=== PATIENT | male | born 1960 | race Caucasian/White ===

== ENCOUNTER 2019-07-20 | Emergency (ER) | payer MEDICARE ==
[~2019-07-20] MED LIST: ACCUNE1 IN; ASPIRIN LOW DOS81 M2 PO; BACTROBAN2 % EX; CRESTOR10 MG PO; DEPO-MEDROL80 MG/ML IM; FLEXERIL OR; FLEXERIL5 M1 PO; GENTASOL0.3 % OS; HYZAAR1 TA1 PO; HYZAAR1 TAB OR; LIPITOR10 M1 PO; LISINOPRIL/HYDR1 TA1 PO; MECLIZINE25 MG PO; METFORMIN500 MG PO; NAPROSYN500 MG OR; NAPROSYN500 MG PO; NEXIUM40 M1 OR; OMEPRAZOLE20 M2 PO; PERCOCET 5/325M1 TAB PO; ULTRAM50 M1 OR
[2019-07-20] MEDS ORDERED: BACTRIM DS1 TAB PO (10:44)
== END 2019-07-20 11:15 | disposition home or self-care (01) ==
DX: L03.312 Cellulitis of back [any part except buttock and flank] (principal); E11.9 Type 2 diabetes mellitus without complications; Z79.84 Long term (current) use of oral hypoglycemic drugs

== ENCOUNTER 2022-08-21 11:57 | Inpatient (IN) | payer MEDICARE ==
[~2022-08-21] VITALS: Ht 175.3 cm; Wt 120.8 kg
[2022-08-21] VITALS (67 sets, daily range): BP systolic 79–121; BP diastolic 44–73
[~2022-08-21 11:57] MED LIST changes: +BACTRIM DS1 TAB PO; +BACTRIM1 TAB PO; +FLUCONAZOLE100 MG PO; +GLYBURIDE5 M1 PO; +JARDIANCE25 MG PO
--- NOTE | 2022-08-21 12:09 | NUR ---
PT TO ROOM 11 VIA EMS COMPLAINING OF NAUSEA, VOMITING, AND DIARRHEA SINCE THIS MORNING.
[2022-08-21] MEDS ORDERED: ASPIRIN81 MG PO (12:20)
[2022-08-21] MEDS ORDERED: JANUVIA100 MG PO (12:21)
[2022-08-21 12:55] LABS: ALKALINE PHOSPHATASE 95 u/l (38-126); ANION GAP 14 (6-22 (CALC)); BILIRUBIN, TOTAL 0.3 mg/dL (0.2-1.3); BUN 25 mg/dL (8-23); BUN/CREATININE RATIO 15 (12-20 (CALC)); CARBON DIOXIDE 27 mmol/l (22-30); CHLORIDE 101 mmol/l (95-108); CREATININE 1.7 mg/dL (0.7-1.3); GFR FOR AFR.AMER. 50 ML/MIN (>=60 (CALC)); GFR OTHER RACES 41 ML/MIN (>=60 (CALC)); LIPASE 120 u/l (23-300); POTASSIUM 4.1 mmol/l (3.5-5.1); SGOT/AST 38 u/l (19-48); SODIUM 138 mmol/l (137-146); TOTAL PROTEIN 7.8 g/dL (6.3-8.2)
--- NOTE | 2022-08-21 13:03 | NUR ---
CHECKED ON PT. PT IS SLEEPY AND IS RECIEVING BOLUS IV FLUIDS FOR BP 85/49 PER LALO MARTINEZ APRN. PT USED BEDSIDE COMMODE WITH THE ASSISTANCE OF NURSING STAFF.
[2022-08-21 13:10] LABS: BASO% 0.2 % (0-3); EOS% 1.2 % (0-8); HEMATOCRIT 42.6 % (39.0-50.0); IMMATURE GRANULOCYTES 0.3 % (0.0-5.0); LYMPH% 7.8 % (15-41); MEAN CELL VOLUME 88.9 fL CALC (80.0-100.0); MEAN CORPUSCULAR HGB 29.2 pG CALC (26.0-32.0); MEAN CORPUSCULAR HGB CONC 32.9 g/dL CAL (32.0-36.0); MONO% 6.6 % (2-13); NEUT# 12.12 thou/uL (1.82-7.42); NEUT% 83.9 % (42-76); RED BLOOD COUNT 4.79 mill/uL (4.70-6.10); RED CELL DISTRI WIDTH 13.3 % (11.5-15.5)
[2022-08-21] MEDS ORDERED: VITAMIN B-121000 MC3 PO (13:24)
[2022-08-21] MEDS ORDERED: IBUPROFEN 200200 MG PO (13:26)
[2022-08-21] MEDS ORDERED: MUPIROCIN2 % EX (13:27)
[2022-08-21] MEDS ORDERED: PROAIR HFA IN (13:28)
[2022-08-21] MEDS ORDERED: TRICOR145 MG PO (13:28)
--- NOTE | 2022-08-21 13:36 | NUR ---
ANOTHER BAG OF NORMAL SALINE WAS GIVEN TO PT PER LALO MARTINEZ APRN FOR BP AT 85/46. PT'S BP IS NOW 98/53. BP MONITORING IS CONTINUED.
--- NOTE | 2022-08-21 13:55 | NUR ---
BP AT 97/59. BOLUS INFUSING. FAMILY AT BEDSIDE. PATIENT RESUMED TO [place]PINE POSITION FROM [place]
--- NOTE | 2022-08-21 14:40 | NUR ---
Reassessment of patient completed. No distress noted.
--- NOTE | 2022-08-21 15:30 | NUR ---
Reassessment of patient completed. No distress noted.
--- NOTE | 2022-08-21 16:38 | NUR ---
DISCUSSED PLAN OF CARE AND ADMISSION. PATIENT STATED UNDERSTANDING
[2022-08-21 17:14] LABS: URINE BILIRUBIN - DIPSTICK NEGATIVE (NEGATIVE); URINE BLOOD DIPSTICK NEGATIVE (NEGATIVE); URINE COLOR YELLOW; URINE GLUCOSE - DIPSTICK >=1000 mg/dL (NEGATIVE); URINE KETONE NEGATIVE (NEGATIVE); URINE LEUK ESTERASE NEGATIVE (NEGATIVE); URINE PROTEIN - DIPSTICK NEGATIVE (NEG-TRACE); URINE UROBILINOGEN - DIPSTICK 0.2 E.U./dL (0.2)
[2022-08-21 17:15] LABS: URINE NITRITE - DIPSTICK NEGATIVE (Negative)
--- NOTE | 2022-08-21 17:54 | NUR ---
Patient arrived to unit via stretcher accompanied by sister and staff. Report received from TY Arshad at approximately 1840.
--- NOTE | 2022-08-21 18:04 | NUR ---
REPORT WAS CALLED TO ICU ROOM 4 NURSE SHEREE. PT WAS TRANSPORTED TO ICU ROOM 4 WITH TELEMETRY, 2 LITERS O2 NASAL CANULA. PT IS ALERT AND ORIENTED X3, AMBULATORY WITH SUPERVISION DUE TO HYPOTENSION AND DIZZINESS. NAD AT THIS TIME AND NO CONCERNS WERE MADE AWARE BY NURSE OR PT.
--- NOTE | 2022-08-21 18:41 | NUR ---
Admission assessment completed. Patient lying in bed. Breathing even and unlabored. Patient denies any pain at this time. Patient provided late dinner. Bed in low position. No s/s of distress. Current BP at 92/63. Call light next to R hand.
--- NOTE | 2022-08-21 19:30 | NUR ---
awake. denies distress. car salesperson shows sinus rhythm. #18 lac. ivf began as ordered. po fluids taken well. voids per urinal. fall precautions cont.
--- NOTE | 2022-08-21 21:00 | NUR ---
iv positional. #20 started x1 attempt rac. iv resumed in that site.
[2022-08-22] VITALS (25 sets, daily range): BP systolic 96–124; BP diastolic 46–70
--- NOTE | 2022-08-22 00:10 | NUR ---
lab here. blood drawn.
--- NOTE | 2022-08-22 00:45 | NUR ---
pulse ox has dropped several times to 82% then recovers. is now 77%. pt has VERY apparent sleep apnea. o2 began @ 5 l/m per rt.
--- NOTE | 2022-08-22 04:00 | NUR ---
cardiac telemetry shows sinus tach.
[2022-08-22 05:31] LABS: HEMATOCRIT 43.9 % (39.0-50.0); MEAN CELL VOLUME 91.1 fL CALC (80.0-100.0); MEAN CORPUSCULAR HGB CONC 31.9 g/dL CAL (32.0-36.0); RED BLOOD COUNT 4.82 mill/uL (4.70-6.10); RED CELL DISTRI WIDTH 13.6 % (11.5-15.5)
[2022-08-22 06:09] LABS: ANION GAP 3 (6-22 (CALC)); BUN 23 mg/dL (8-23); BUN/CREATININE RATIO 17 (12-20 (CALC)); CALCULATED LDLCHOLESTEROL 75 mg/dL (62-129 (CALC)); CARBON DIOXIDE 25 mmol/l (22-30); CHLORIDE 107 mmol/l (95-108); CHOLESTEROL HDL RATIO 5.5 (<4.4 (CALC)); CREATININE 1.4 mg/dL (0.7-1.3); GFR FOR AFR.AMER. > 60 ML/MIN (>=60 (CALC)); GFR OTHER RACES 51 ML/MIN (>=60 (CALC)); HDL CHOLESTEROL 31 mg/dL (39.0-59.0); POTASSIUM 4.4 mmol/l (3.5-5.1); SODIUM 131 mmol/l (137-146); TOTAL CHOLESTEROL 173 mg/dl (0-199); TOTAL TRIGLYCERIDES 335 mg/dl (0-149); VLDL CHOLESTROL 67 mg/dl (4-45 (CALC))
--- NOTE | 2022-08-22 09:37 | NUR ---
Patient sitting up on the side of the bed eating breakfast. Assessment completed. Patient denies any pain at this time. Breathing even and unlabored. No s/s of distress. Bed in low position. Call light next to L leg. Will continue to monitor.
--- NOTE | 2022-08-22 10:33 | NUR ---
Patient appears to be resting with eyes closed. Sister at bedside. No s/s of distress. Call light next to R hand. Bed in low position. Will continue to monitor.
--- NOTE | 2022-08-22 12:00 | NUR ---
Patient sitting up in bed eating lunch. Patient denies any pain at this time. No s/s of distress. Bed in low position. Breathing even and unlabored. Will continue to monitor.
--- NOTE | 2022-08-22 14:00 | NUR ---
Patient appears to be resting with eyes closed. No s/s of distress. Bed in low position. Call light next to R hand.
--- NOTE | 2022-08-22 16:00 | NUR ---
Patient sitting up in bed wathcing tv. Patient denies any pain at this time. No s/s of distress. Patient denies any concerns. Bed in low position. Call light next to R hand. Will continue to monitor.
--- NOTE | 2022-08-22 18:17 | NUR ---
Patient lying in bed. Patient denies any pain at this time. Breathing even and unlabored. No s/s of distress. Bed in low position. Call light next to R hand.
--- NOTE | 2022-08-22 19:37 | NUR ---
HELPED PT TAKE A BEDSIDE BATH AND CHANGED GOWN AND LINEN. PT BACK IN BED AT THIS TIME. NO C/O OF DIZZINESS, SOB OR PAIN DURING BATHING. VSS. NAD. PT STAYED ON 4L NC DURING BATH.
--- NOTE | 2022-08-22 22:00 | NUR ---
PT WATCHING TV RESTING IN BED. URINAL EMPTIED AND RECORDED. VSS. NAD.
[2022-08-23] VITALS (27 sets, daily range): BP systolic 95–132; BP diastolic 43–73
--- NOTE | 2022-08-23 | NUR ---
PT SLEEPING AND SHOWING SIGNS OF OBSTRUCTED SLEEP APNEA WITH O2 MONITOR SHOWING HIS OXYGEN LEVEL BETWEEN 78%-82% FOR LONGER THAN 30 SECONDS WHILE BREATHING/SNORING. TALKED TO PATIENT ABOUT NEEDING A CPAP AT NIGHT AND SEEING HIS DR ABOUT THIS BUT PT HAS A HARD TIME COMPREHENDING. VSS BACK STABLE AND PT NAD.
--- NOTE | 2022-08-23 03:00 | NUR ---
CALLED RT AND ME AND RT PULLED PT UP TO HEAD OF THE BED AND READJUSTED HIM. PT NAD VSS.
[2022-08-23 05:28] LABS: BASO% 0.2 % (0-3); EOS% 3.5 % (0-8); HEMATOCRIT 42.5 % (39.0-50.0); HEMOGLOBIN 13.4 g/dl (14.0-18.0); IMMATURE GRANULOCYTES 0.5 % (0.0-5.0); LYMPH% 22.9 % (15-41); MEAN CELL VOLUME 91.4 fL CALC (80.0-100.0); MEAN CORPUSCULAR HGB 28.8 pG CALC (26.0-32.0); MEAN CORPUSCULAR HGB CONC 31.5 g/dL CAL (32.0-36.0); MONO% 7.1 % (2-13); NEUT# 4.2 thou/uL (1.82-7.42); NEUT% 65.8 % (42-76); RED BLOOD COUNT 4.65 mill/uL (4.70-6.10); RED CELL DISTRI WIDTH 13.6 % (11.5-15.5)
[2022-08-23 05:52] LABS: ALBUMIN 3.6 g/dL (3.2-5.0); ALKALINE PHOSPHATASE 74 u/l (38-126); BUN 18 mg/dL (8-23); BUN/CREATININE RATIO 14 (12-20 (CALC)); CARBON DIOXIDE 25 mmol/l (22-30); CHLORIDE 107 mmol/l (95-108); CREATININE 1.3 mg/dL (0.7-1.3); GFR FOR AFR.AMER. > 60 ML/MIN (>=60 (CALC)); GFR OTHER RACES 56 ML/MIN (>=60 (CALC)); POTASSIUM 4.1 mmol/l (3.5-5.1); SGOT/AST 30 u/l (19-48); TOTAL PROTEIN 6.7 g/dL (6.3-8.2)
[2022-08-23 06:04] LABS: ANION GAP 11 (6-22 (CALC)); BILIRUBIN, TOTAL 0.1 mg/dL (0.2-1.3); SODIUM 139 mmol/l (137-146)
--- NOTE | 2022-08-23 08:00 | NUR ---
Patient sitting on the side of the bed eating breakfast. Assessment completed. Breathing is even and unlabored. Patient satting at 98% on 4L NC. Patient does not need oxygen when awake, but has undiagnosed sleep apnea. Patient and sister provided this information on 08/22. Both verbalized understanding and stated will f/u with PCP about sleep study referral. No s/s of distress. Patient is clear but diminished in lower lobes. Bed in low position. Call light next to L leg. Will continue to monitor.
[2022-08-23] MEDS ORDERED: ZITHROMAX250 MG PO (09:45)
[2022-08-23] MEDS ORDERED: OXY1 (09:54)
--- NOTE | 2022-08-23 10:12 | NUR ---
Patient appears to be resting with eyes closed. No s/s of distress. Patient reminded at 0950 to keep NC on especially when sleeping. Pt verbalized understanding. Bed in low position. Call light next to R hand. Will continue to monitor.
--- NOTE | 2022-08-23 12:21 | NUR ---
Patient appears to be resting with eyes closed. No s/s of distress. Patient has periods of apnea when sleeping. Bed in low position. Call light next on chest. Will continue to monitor.
--- NOTE | 2022-08-23 13:15 | NUR ---
Patient sitting up in bed. Sister at bedside; provided patient update. Patient may be discharged, possibly 08/24, after case management (CM) helps with obtaining oxygen at home. CM is not in office today. Sister verbalized understanding.
--- NOTE | 2022-08-23 14:25 | NUR ---
Patient lying in bed resting with eyes closed. No s/s of distres. Bed in low position. Call light next to R hand. Will continue to monitor.
--- NOTE | 2022-08-23 16:26 | NUR ---
Patient appears to be resting in bed with eyes closed. Patient continues to have periods of apnea. No s/s of distress. Bed in low position. Call light next to R hand. Will continue to monitor.
--- NOTE | 2022-08-23 18:38 | NUR ---
Patient lying in bed. Patient denies any pain. No issues or concerns at this time. Bed in low position. Call light next to R arm. Report will be given to night nurse and patient will continue to be monitored.
[2022-08-24] VITALS (11 sets, daily range): BP systolic 111–146; BP diastolic 57–87
--- NOTE | 2022-08-24 07:39 | NUR ---
REPORT RECEIVED FROM [employer]GGY OPERATOR - PT OBSERVED IN BED WITH EYES CLOSED - STABLE ON MONITOR- NO S/S DISTRESS - BED IN LOWEST LOCKED POSITION - SAFTEY PRECAUTIONS IN PLACE- CALL LIGHT IN REACH
[2022-08-24] MEDS ORDERED: OMNICEF300 MG PO (08:15)
--- NOTE | 2022-08-24 10:19 | NUR ---
DC INSTRUCTIONS REVIEWED WITH PATIENT - PT VERBALIZED UNDERSTANDING OF INSTRUCTIONS AND NEW MEDS - PIVS REMOVED AND STERILE GAUZE AND COBAN APPLIED - HOME MEDS SENT TO PT PREFERRED PHARMACY - PT SISTER WILL BE HERE AT 1030 FOR TRUCK TECHNICIAN
--- NOTE | 2022-08-24 10:44 | NUR ---
PT WAS TAKEN DOWN TO MAIN ENTRANCE IN STABLE CONDITION WITH ALL PERSONAL BELONGINGS
== END 2022-08-24 10:45 | disposition home or self-care (01) | DRG 195 ==
LOC: ED 11:57 → ED-I 16:19 → ED 16:37 → ICU 16:38
PROVIDERS: Internal Medicine; Nurse Practitioner; ADMIT Internal Medicine; ATTEND Internal Medicine
DX: J18.9 Pneumonia, unspecified organism (principal); I95.9 Hypotension, unspecified; R09.02 Hypoxemia; I10 Essential (primary) hypertension; G47.33 Obstructive sleep apnea (adult) (pediatric); E11.9 Type 2 diabetes mellitus without complications; E78.5 Hyperlipidemia, unspecified; Z79.84 Long term (current) use of oral hypoglycemic drugs; Z20.822 Contact with and (suspected) exposure to COVID-19
CPT/HCPCS: J1650; Q9967

== ENCOUNTER 2024-02-18 14:10 | Emergency (ER) | payer MEDICARE ==
[~2024-02-18] VITALS: Ht 175.3 cm; Wt 113.0 kg
[2024-02-18] VITALS (54 sets, daily range): BP systolic 53–121; BP diastolic 33–70
[~2024-02-18 14:10] MED LIST changes: +ASPIRIN81 MG PO; +IBUPROFEN 200200 MG PO; +JANUVIA100 MG PO; +MUPIROCIN2 % EX; +OMNICEF300 MG PO; +OXY1; +PROAIR HFA IN; +TRICOR145 MG PO; +VITAMIN B-121000 MC3 PO; +ZITHROMAX250 MG PO
[2024-02-18] MEDS ORDERED: ONDANSETRON HCl 4 MG/2 ML SDV IV ONE (14:30)
[2024-02-18] MEDS ORDERED: SODIUM CHLORIDE 0.9% 1,000 ML IV ONE ×4 (14:35→16:30)
[2024-02-18 14:45] LABS: HEMATOCRIT 34.3 % (39.0-50.0); HEMOGLOBIN 11.7 g/dl (14.0-18.0); IMMATURE GRANULOCYTES 0.7 % (0.0-5.0); LYMPH% 1.3 % (15-41); MEAN CELL VOLUME 87.9 fL CALC (80.0-100.0); MEAN CORPUSCULAR HGB CONC 34.1 g/dL CAL (32.0-36.0); MONO% 3.5 % (2-13); NEUT# 19.04 thou/uL (1.82-7.42); NEUT% 94.5 % (42-76); RED BLOOD COUNT 3.9 mill/uL (4.70-6.10); RED CELL DISTRI WIDTH 12.5 % (11.5-15.5)
[2024-02-18] MEDS ORDERED: MORPHINE SULFATE 4 MG/ML VIAL IV ONE (14:55)
[2024-02-18] MEDS ORDERED: ASPIRIN 81 MG/TAB PO ONE (14:55)
[2024-02-18 15:02] LABS: ALBUMIN 3.5 g/dL (3.2-5.0); BILIRUBIN, TOTAL 0.4 mg/dL (0.2-1.3); TOTAL PROTEIN 7.3 g/dL (6.3-8.2)
[2024-02-18 15:09] LABS: CREATININE 7.6 mg/dL (0.7-1.3)
[2024-02-18] MEDS ORDERED: GENTAMICIN SULFATE IV ONE (15:25)
[2024-02-18] MEDS ORDERED: DEXTROSE 5% IV ONE (15:25)
[2024-02-18] MEDS ORDERED: DEXTROSE 5% 0 ML IV ONE (15:57)
[2024-02-18 16:07] LABS: URINE BLOOD DIPSTICK Moderate (NEGATIVE); URINE COLOR Yellow; URINE GLUCOSE - DIPSTICK 100 mg/dL (NEGATIVE); URINE KETONE Negative (NEGATIVE); URINE LEUK ESTERASE Moderate (NEGATIVE); URINE NITRITE - DIPSTICK Negative (Negative); URINE PH 5.5 (4.5-8.0); URINE PROTEIN - DIPSTICK 100 mg/dL (NEG-TRACE); URINE SPECIFIC GRAVITY >=1.030; URINE UROBILINOGEN - DIPSTICK 0.2 E.U./dL (0.2)
[2024-02-18 16:11] LABS: URINE CASTS RARE lpf (NONE-RARE)
[2024-02-18] MEDS ORDERED: SODIUM CHLORIDE 0.9% 500 ML IV ONE (16:25)
[2024-02-18] MEDS ORDERED: SODIUM BICARBONATE 8.4% 50 ML/SYR IV ONE (16:25)
[2024-02-18] MEDS ORDERED: PHENYLEPHRINE HCL 10 MG in SODIUM CHLORIDE 0.9% 250 ML IV ONE (17:20)
[2024-02-18] MEDS ORDERED: DiphenhydrAMINE HCL 50 MG/ML SDV IV ONE (17:40)
[2024-02-18] MEDS ORDERED: PHENYLEPHRINE HCL 10 MG/ML VIAL ONE (17:44)
[2024-02-18] MEDS ORDERED: SODIUM CHLORIDE 0.9% 250 ML IV ONE (17:44)
[2024-02-18] MEDS ORDERED: PHENYLEPHRINE HCL IV ONE (18:05)
[2024-02-18] MEDS ORDERED: SODIUM CHLORIDE 0.9% IV ONE (18:05)
== END 2024-02-18 19:17 | disposition short-term general hospital (02) ==
LOC: ED 14:10
PROVIDERS: Family Medicine
PROC: 06HY33Z Insertion of Infusion Device into Lower Vein, Percutaneous Approach (ICD-10-PCS; principal; 2024-02-18)
DX: A41.9 Sepsis, unspecified organism (principal); R65.21 Severe sepsis with septic shock; N39.0 Urinary tract infection, site not specified; L03.115 Cellulitis of right lower limb; I10 Essential (primary) hypertension; E11.9 Type 2 diabetes mellitus without complications; Z79.84 Long term (current) use of oral hypoglycemic drugs; E78.00 Pure hypercholesterolemia, unspecified; E66.9 Obesity, unspecified
CPT/HCPCS: J0713